=== PATIENT | male | born 1990 | race Caucasian/White ===

== ENCOUNTER 2020-05-19 16:04 | Emergency (ER) | payer SELFPAY ==
[2020-05-19] MEDS ORDERED: Sodium Chloride 0.9% 1000 ML 1,000 ML IV STA (16:40)
[2020-05-19] MEDS ORDERED: TORAdol 30 mg Injection IV ONE (16:40)
--- NOTE | 2020-05-19 16:49 | ERPHSYRPT ---
- History of Present Illness Time Seen by Provider: 05/19/20 16:31 Historian: patient Exam Limitations: no limitations Patient Subjective Stated Complaint: Pt states "I think I pulled my groin muscle the other day. today, it hurts more and my leg just wants to give out." Triage Nursing Assessment: Pt presented alert and oriented X 3, skin pwd Pt ambulates with a limp. Pt has pain when right leg moved laterally. Physician History: 29 years old male presented in the ER with 2 days history of right groin pain moderate to severe intensity sharp nature, aggravated with activity/ambulation and better with resting and taking [id number] ibuprofen. Denies any associated groin swelling or urinary symptoms. No fever chills nausea or vomiting. No testicular pain or swelling. Timing/Duration: day(s) (2) Activities at Onset: rest Quality: sharpness Abdominal Pain Onset Location: other (Right groin) Pain Radiation: no radiation Severity of Pain-Max: severe Severity of Pain-Current: moderate Modifying Factors: Improves With: lying down, rest, position. Worsens With: movement, walking Associated Symptoms: denies symptoms Previous symptoms: no prior history Allergies/Adverse Reactions: No Known Drug Allergies Allergy (Verified 05/19/20 16:14) Hx Tetanus, Diphtheria Vaccination/Date Given: No Hx Influenza Vaccination/Date Given: No Hx Pneumococcal Vaccination/Date Given: No Immunizations Up to Date: Yes Travel Risk - International Travel Have you traveled outside of the country in past 3 weeks: No - Coronavirus Screening Are you exhibiting any of the following symptoms?: No Close contact with a COVID-19 positive Pt in past 14-21 Days: No - Review of Systems Constitutional: No Symptoms Eyes: No Symptoms Ears, Nose, & Throat: No Symptoms Respiratory: No Symptoms Cardiac: No Symptoms Abdominal/Gastrointestinal: Abdominal Pain Genitourinary Symptoms: No Symptoms Musculoskeletal: No Symptoms Skin: No Symptoms Neurological: No Symptoms Psychological: No Symptoms Endocrine: No Symptoms Hematologic/Lymphatic: No Symptoms Immunological/Allergic: No Symptoms - Past Medical History Pertinent Past Medical History: No - Past Surgical History Past Surgical History: No - Social History Smoking Status: Current every day smoker How long have you smoked: years Exposure to second hand smoke: Yes Drug Use: none Patient Lives Alone: No - Nursing Vital Signs Nursing Vital Signs: Initial Vital Signs Temperature 99.1 F 05/19/20 16:10 Pulse Rate 79 05/19/20 16:10 Respiratory Rate 20 05/19/20 16:10 Blood Pressure 180/92 05/19/20 16:10 O2 Sat by Pulse Oximetry 98 05/19/20 16:10 Pain Scale Pain Intensity 7 - Physical Exam General Appearance: no apparent distress, alert Eye Exam: PERRL/EOMI Ears, Nose, Throat Exam: normal ENT inspection, pharynx normal Neck Exam: normal inspection, non-tender, supple, full range of motion Respiratory Exam: normal breath sounds, lungs clear Cardiovascular Exam: regular rate/rhythm, normal heart sounds Gastrointestinal/Abdomen Exam: soft, normal bowel sounds, No tenderness Male Genitalia Exam: normal genitalia, other (Right inguinal tenderness. Negative expansile cough impulse. Positive cremasteric reflex. Testicular bila teral normal lie, can easily get above the cord. No tenderness.) Back Exam: normal inspection, normal range of motion Extremity Exam: normal inspection, normal range of motion Skin Exam: normal color, warm SpO2 Interpretation: normal SpO2: 98 O2 Delivery: Room Air Ordered Tests: Active Orders 24 hr Category Date Time Status IV Insertion STAT Care 05/19/20 16:40 Completed CBC W DIFF Stat Lab 05/19/20 16:39 Ordered CMP Stat Lab 05/19/20 16:39 Ordered Medication Summary Discontinued Medications Generic Name Dose Route Start Last Admin Trade Name Freq PRN Reason Stop Dose Admin Sodium Chloride 1,000 mls @ 999 mls/hr 05/19/20 16:40 05/19/20 17:00 Sodium Chloride 0.9% 1000 Ml IV 05/19/20 17:40 Not Given .Q1H1M STA Ketorolac Tromethamine 30 mg 05/19/20 16:40 05/19/20 17:11 Toradol 30 Mg Injection IV 05/19/20 16:41 Not Given STAT ONE Ketorolac Tromethamine 30 mg 05/19/20 17:12 05/19/20 17:16 Toradol 30 Mg Injection IM 05/19/20 17:13 30 mg STAT ONE Administration Ketorolac Tromethamine Confirm 05/19/20 17:14 Toradol 30 Mg Injection Administered 05/19/20 17:15 Dose 30 mg .ROUTE .STK-MED ONE - Progress Progress: pain not gone completely Progress Note: 05/19/20 16:49 29 years old is evaluated for right groin pain. I did not appreciate any inguinal scrotal swelling. No testicular tenderness, normal lie. No right lower quadrant tenderness I have offered him work-up including CT to rule out any hernia/obstruction but patient refused. 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 It could be a muscle strain. I have given him a Toradol shot. Offered urinalysis but patient does not want to get it done as well. Discussed signs symptoms of worsening needing return to ER which patient seems understanding. I will discharge him on NSAIDs and muscle relaxant. Counseled pt/family regarding: diagnosis, need for follow-up - Departure Departure Disposition: Home Clinical Impression: Strain of right inguinal muscle Qualifiers: Encounter type: initial encounter Qualified Code(s): S39.013A - Strain of muscle, fascia and tendon of pelvis, initial encounter Condition: Good Critical Care Time: No Referrals: JENNIFER BURR MD [ACTIVE STAFF] - Follow Up with PCP/3 days Instructions: Groin Hernia (DC), Groin Strain (DC) Additional Instructions: Take Tylenol/ibuprofen as needed. Follow-up with primary care physician for reevaluation. Return to ER for intractable pain, vomiting, fever chills or scrotal swelling etc. Prescriptions: Ibuprofen 600 mg PO Q6HPRN PRN 10 Days #20 tablet PRN Reason: Pain Methocarbamol [Robaxin-750] 750 mg PO TID #20 tablet
[2020-05-19] MEDS ORDERED: TORAdol 30 mg Injection IM ONE (17:12)
[2020-05-19] MEDS ORDERED: TORAdol 30 mg Injection ONE (17:14)
[2020-05-19 17:15] VITALS: BP 168/90; PULSE 78
[2020-05-19 18:07] VITALS: O2SAT 98
== END 2020-05-19 17:27 | disposition home or self-care (01) ==
LOC: ED 16:04
DX: S39.013A Strain of muscle, fascia and tendon of pelvis, initial encounter (principal); X50.9XXA Other and unspecified overexertion or strenuous movements or postures, initial encounter; Y93.9 Activity, unspecified; Y92.9 Unspecified place or not applicable
CPT/HCPCS: 96372; 99284; J1885